=== PATIENT | female | born 1990 | race Hispanic/Latino ===

== ENCOUNTER 2016-12-24 02:15 | Inpatient (IN) ==
[2016-12-24] MEDS ORDERED: ZOFRAN IV PRN (02:50)
[2016-12-24] MEDS ORDERED: REGLAN PO ONE (02:50)
[2016-12-24] MEDS ORDERED: KEFZOL 1 GM/D5W 1 GM/50 ML IVPB IV PRN (02:50)
[2016-12-24] MEDS ORDERED: PEPCID PO ONE (02:50)
[2016-12-24] MEDS ORDERED: PEPCID PO PRN (02:50)
[2016-12-24] MEDS ORDERED: PEPCID IV PRN (02:50)
[2016-12-24] MEDS ORDERED: PITOCIN 30 UNITS/LR 30 UNITS/500 ML IV.SOLN IV SCH (02:50)
[2016-12-24] MEDS ORDERED: TYLENOL PO PRN (02:50)
[2016-12-24 02:55] LABS: URINE SOURCE VOIDED
[2016-12-24] MEDS: LR 1,000 ML IV SCH ×2 (03:00→06:20)
[2016-12-24] MEDS ORDERED: SODIUM CHLORIDE 0.9% INJ SCH (03:00)
[2016-12-24 03:02] LABS: BILIRUBIN URINE NEGATIVE (NEGATIVE); BLOOD URINE NEGATIVE (NEGATIVE); CLARITY CLEAR (CLEAR); COLOR YELLOW; GLUCOSE URINE NEGATIVE (NEGATIVE); LEUKOCYTES URINE 2+ (NEGATIVE); NITRITE URINE NEGATIVE (NEGATIVE); PROTEIN URINE NEGATIVE (NEGATIVE); UROBILINOGEN URINE NORMAL
[2016-12-24 03:22] LABS: MANUAL DIFF NEEDED? NO
[2016-12-24 03:29] LABS: BASO% 0.2 % (0.0-0.8); EOS# 0.33 X1000 (0.0-0.7); EOS% 2.8 % (0.0-10.0); HEMATOCRIT 37.9 % (37.0-47.0); HEMOGLOBIN 13.3 g/dL (12.0-16.0); IMM GRAN# 0.03 X1000 (0.0-0.04); IMM GRAN% 0.3 % (0.0-0.5); LYMPH# 2.69 X1000 (1.2-3.4); LYMPH% 22.5 % (20.5-51.1); MCH 33.8 PG (27-31); MCHC 35.1 g/dL (33-37); MCV 96.2 FL (81-99); MONO# 1.36 X1000 (0.11-0.59); MONO% 11.4 % (1.7-9.3); MPV 11.6 FL (7.4-10.4); NEUT% 62.8 % (42.2-75.2); PLT 202 X1000 (130-400); RBC 3.94 XMIL (4.2-5.4)
[2016-12-24] MEDS: STADOL IV PRN ×2 (03:40→06:26)
[2016-12-24] MEDS ORDERED: MINERAL OIL ONE (07:18)
[2016-12-24] MEDS ORDERED: XYLOCAINE-MPF 1% INJ ONE (07:19)
[2016-12-24] MEDS ORDERED: BENADRYL PO PRN (10:42)
[2016-12-24] MEDS ORDERED: PITOCIN IM PRN (10:42)
[2016-12-24] MEDS ORDERED: HYDROXYZINE PO PRN (10:42)
[2016-12-24] MEDS ORDERED: BOOSTRIX VACCINE IM ONE (10:42)
[2016-12-24] MEDS ORDERED: MINERAL OIL PO PRN (10:42)
[2016-12-24] MEDS ORDERED: NORCO-5 PO PRN (10:42)
[2016-12-24] MEDS ORDERED: AMBIEN PO PRN (10:42)
[2016-12-24] MEDS ORDERED: M-M-R II VACCINE SUBQ ONE (10:42)
[2016-12-24] MEDS ORDERED: XYLOCAINE-MPF 1% INJ PRN (10:42)
[2016-12-24] MEDS ORDERED: PITOCIN 20 UNITS/LR 20 UNITS/1,000 ML IV.SOLN IV SCH (10:42)
[2016-12-24] MEDS ORDERED: PITOCIN 30 UNITS/LR 30 UNITS/500 ML IV.SOLN IV ONE (10:42)
[2016-12-24] MEDS ORDERED: HYDROXYZINE IM PRN (10:42)
[2016-12-24] MEDS ORDERED: BENADRYL IV PRN (10:42)
[2016-12-24] MEDS ORDERED: CYTOTEC PO PRN (10:42)
[2016-12-24] MEDS: MOTRIN PO PRN ×2 (11:13→22:17)
[2016-12-24] MEDS: PERI MEDS (DERMOPLAST/NUPERCAINAL/TUCKS) MISC PRN (11:14)
[2016-12-24] MEDS: NORCO-10 PO PRN ×2 (12:30→22:17)
[2016-12-24] MEDS: PERICOLACE PO SCH (21:01)
[2016-12-25] MEDS: NORCO-10 PO PRN ×3 (06:18→23:59)
[2016-12-25] MEDS: MOTRIN PO PRN ×3 (06:18→23:59)
[2016-12-25 07:20] LABS: HEMOGLOBIN 9.9 g/dL (12.0-16.0); MCH 32.5 PG (27-31); MCV 98.4 FL (81-99); RBC 3.05 XMIL (4.2-5.4)
[2016-12-25] MEDS: PERICOLACE PO SCH (23:59)
[2016-12-26] MEDS: PERI MEDS (DERMOPLAST/NUPERCAINAL/TUCKS) MISC PRN (05:27)
[2016-12-26] MEDS: MOTRIN PO PRN (07:20)
[2016-12-26] MEDS: NORCO-10 PO PRN (07:21)
[2016-12-26 07:41] VITALS: BP 126/69
== END 2016-12-26 13:35 | disposition home or self-care (01) ==
LOC: P.OPLD 02:15 → P.LD 02:20
PROVIDERS: ADMIT Obstetrics & Gynecology; ATTEND Obstetrics & Gynecology